=== PATIENT | male | born 1935 | race Caucasian/White ===

== ENCOUNTER → 2018-06-26 11:54 | Outpatient (CLI) | payer MEDICARE, SELFPAY ==
[2018-06-26 14:22] LABS: Absolute Lymphocyte Count 1.66 X10^3/ul (0.83-4.51); Absolute Neutrophil Count 4.5 X10^3/uL (2.0-7.7); Basophil# 0.03 X10^3/uL; Basophil% 0.4 % (0-1); Eosinophil# 0.27 X10^3/uL; Eosinophils% 3.7 % (0-5); Hematocrit 42.3 % (40-54); Hemoglobin 13.9 g/dl (13.0-16.5); Lymphocyte # 1.66 X10^3/ul (4.0); Lymphocyte % 22.6 % (19-41); Mean Corp Hgb Conc 32.9 g/gl (32-36); Mean Corpuscular Volume 91.2 fL (80-94); Mean Platelet Vol. 10.8 fl (6.2-12.0); Monocyte# 0.87 X10^3/uL; Monocyte% 11.9 % (0-10); Neutrophil # 4.49 X10^3/uL (2.7-7.7); Neutrophil % 61.1 % (47-70); Platelet Count 338 K/mm3 (150-450); RBC Distribution Width CV 13.1 % (11.6-14.6); RBC Distribution Width SD 43.2 fl (35.1-43.9); Red Blood Count 4.64 M/mm3 (4.6-6.2); White Blood Count 7.3 K/mm3 (4.4-11.0)
[2018-06-26 14:23] LABS: POSITIVE COUNT NO; POSITIVE DIFFERENTIAL NO; POSITIVE MORPHOLOGY NO
[2018-06-26 14:35] LABS: ALB/GLOB Ratio 0.7 RATIO (0.9-2.4); AST(SGOT) 22 U/L (15-37); Alanine Aminotransfer ALT/SGPT 17 U/L (16-61); Albumin, Serum 3.3 g/dL (3.2-5.0); Alkaline Phosphatase 60 U/L (45-117); Anion Gap 7 (5-15); BUN 17 mg/dL (7-18); BUN/Creat Ratio 16.8 RATIO (10-20); Calcium,Total 9.2 mg/dL (8.5-10.1); Chloride 99 mmol/L (98-107); Creatinine, Serum 1.01 mg/dL (0.70-1.30); EST Glomerular Filtration Rate 75 mL/min (>60); Est Glom Filt Rate - Afr Amer 91 mL/min (>60); Globulin 4.8 g/dL (2.2-4.2); Glucose 97 mg/dL (74-106); Potassium 4.4 mmol/L (3.5-5.1); Protein, Total 8.1 g/dL (6.4-8.2); Rheumatoid Factor < 10.0 IU/mL (<15); Sodium Level 135 mmol/L (136-145); Uric Acid 7.3 mg/dL (3.5-7.2)
[2018-06-27 15:22] LABS: ANTINUCLEAR ANTIBODIES DIRECT Positive (Negative)
== END ==
PROVIDERS: Family Provider Family Medicine; PCP Family Medicine; Visit Provider Family Medicine
DX: M10.9 Gout, unspecified (principal)
CPT/HCPCS: 36415; 80053; 84550; 85025; 86038; 86140; 86225; 86235; 86431

== ENCOUNTER → 2024-04-18 | Outpatient (CLI) | payer MEDICARE, SELFPAY ==
[2024-04-18 15:09] LABS: Absolute Lymphocyte Count 1.33 X10^3/uL (0.83-4.51); Absolute Neutrophil Count 8.2 X10^3/uL (2.0-7.7); Basophil# 0.05 X10^3/uL; Basophil% 0.4 % (0-1); Eosinophil# 0.24 X10^3/uL; Eosinophils% 2.1 % (0-5); Hemoglobin 13.2 g/dL (13.0-16.5); Lymphocyte # 1.33 X10^3/ul (0.83-4.51); Lymphocyte % 11.7 % (19-41); Mean Corp Hgb Conc 32.2 g/dL (32-36); Mean Corpuscular Hgb 29.2 pg (27.0-32.0); Mean Corpuscular Volume 90.7 fL (80-94); Mean Platelet Vol. 11.6 fl (6.2-12.0); Monocyte# 1.44 X10^3/uL; Monocyte% 12.7 % (0-10); NRBC Flagged by Analyzer 0 % (0-5); Neutrophil # 8.21 X10^3/uL (2.7-7.7); Neutrophil % 72.7 % (47-70); Platelet Count 280 K/mm3 (150-450); RBC Distribution Width CV 14.2 % (11.6-14.6); RBC Distribution Width SD 47.4 fl (35.1-43.9); Red Blood Count 4.52 M/mm3 (4.6-6.2); White Blood Count 11.3 K/mm3 (4.4-11.0)
[2024-04-18 15:33] LABS: ALB/GLOB Ratio 0.7 RATIO (0.9-2.4); AST(SGOT) 14 U/L (15-37); Alanine Aminotransfer ALT/SGPT 15 U/L (16-61); Albumin, Serum 3.5 g/dL (3.2-5.0); Alkaline Phosphatase 69 U/L (45-117); Anion Gap 8 (5-15); BUN 14 mg/dL (7-18); BUN/Creat Ratio 15.3 RATIO (10-20); Calcium,Total 9.6 mg/dL (8.5-10.1); Chloride 98 mmol/L (98-107); Creatinine, Serum 0.92 mg/dL (0.70-1.30); EST Glomerular Filtration Rate 83 mL/min (>60); Est Glom Filt Rate - Afr Amer 100 mL/min (>60); Globulin 4.7 g/dL (2.2-4.2); Glucose 105 mg/dL (74-106); Potassium 4.4 mmol/L (3.5-5.1); Protein, Total 8.2 g/dL (6.4-8.2); Rheumatoid Factor < 10.0 IU/mL (<15); Sodium Level 133 mmol/L (136-145); Uric Acid 6.8 mg/dL (3.5-7.2)
[2024-04-18 16:03] LABS: Erythrocyte Sedimentation Rate 63 mm/hr (0-20)
[2024-04-21 16:09] LABS: Lyme Scn Total Ab w/Rflx Negative (Negative); PROEL- A/G Ratio 0.8 (0.7-1.7); PROEL- Albumin 3.3 g/dL (2.9-4.4); PROEL- Alpha-1 Globulin 0.4 g/dL (0.0-0.4); PROEL- Alpha-2 Globulin 1.4 g/dL (0.4-1.0); PROEL- Beta Globulin 1.1 g/dL (0.7-1.3); PROEL- Gamma Globulin 1.3 g/dL (0.4-1.8); PROEL- Globulin, Total 4.2 g/dL (2.2-3.9); PROEL- TOTAL PROTEIN 7.5 g/dL (6.0-8.5); PROEL-M-Spike Not Observed g/dL (Not Observed)
== END | disposition home or self-care (01) ==
PROVIDERS: PCP Family Medicine; Visit Provider Family Medicine
DX: M06.4 Inflammatory polyarthropathy (principal)
CPT/HCPCS: 36415; 80053; 84165; 84550; 85025; 85652; 86140; 86431; 86618

== ENCOUNTER → 2024-05-05 | Outpatient (CLI) | payer MEDICARE, SELFPAY ==
[2024-05-05 17:58] LABS: Erythrocyte Sedimentation Rate 20 mm/hr (0-20)
[2024-05-05 18:06] LABS: CRP < 2.90 mg/L (0.0-3.0)
== END | disposition home or self-care (01) ==
LOC: MFPLAB 14:40
PROVIDERS: PCP Family Medicine; Visit Provider Family Medicine
DX: M35.3 Polymyalgia rheumatica (principal)
CPT/HCPCS: 36415; 85652; 86140

== ENCOUNTER → 2024-05-23 | Outpatient (CLI) | payer MEDICARE, SELFPAY ==
[2024-05-23 12:21] LABS: Erythrocyte Sedimentation Rate 11 mm/hr (0-20)
[2024-05-23 12:34] LABS: CRP < 2.90 mg/L (0.0-3.0)
== END | disposition home or self-care (01) ==
LOC: MFPLAB 09:22
PROVIDERS: PCP Family Medicine; Visit Provider Family Medicine
DX: M35.3 Polymyalgia rheumatica (principal)
CPT/HCPCS: 36415; 85652; 86140

== ENCOUNTER 2025-06-26 13:30 | Outpatient (RCR) | payer MEDICARE, SELFPAY ==
--- NOTE | 2025-06-02 14:35 | HP.PTEVAL_ITS ---
Patient's Visit Information Visit Information Visit Information: OSIEL LANCASTER is a 89 year old M referred to Physical Therapy by Dr. Stephan Sullivan MD with a diagnosis of LEFT FLANK /LOWER ABDOMINAL PAIN ,ILIOCOSTALIS SYNDROME. Date of Evaluation: 06/02/25 Physical Therapist: Reynaldo Leong PT, Cert MDT, OCS Visit Plan Frequency: 2x /Week Duration: 4 Weeks Plan: PT INTERVENTIONS HIP ROM ,STRENGTHENING HIP , FUNCTIONAL STRENGTHENING ,CORE STRENGTHENING AND MODALTIES Subjective Subjective: This 89 y/o male presents to physical therapy with left hip and groin region. Seen DR medina PT. Patient had CT-Scan. Patient noticed pain for 2 months which has worsen past several weeks. 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 Alleviating factors rest. Difficulty with steps and unable to squat.Patient able to sleeping , Coughing/sneezing +. Bowel/bladder - .Tried prednisone did not help. Seen DR r/o hernia causing pain. Sleeping good. Patient has no h/o trauma. Patient has had no treatment. Patient condition affects QOL/function. Patient goals to have kirk pain and why. SOCIAL: VOCATION: retired HOBBIES: gardening Pain Left Hip: Pain Intensity (Out of 10): 2 Pain Intensity Range: 8 Objective Objective: POSTURE: mild forward posture ,flat spine GAIT: mild forward posture reciprocal pattern PALAPTION: mild tender Left LS PROM HIP: flexion 0-120 degrees ,hip IR 10 degrees MMT: quads/hams 4/5 ,hip flexion ,hip abduction 4-/5 ,ankle 5/5 LUMBAR ROM: flexion mod loss ,extension severe loss ,side glides mod loss FLEXABILITY: hamstrings min tight Special Tests L/S Slump test left side: Negative L/S Slump test right side: Negative L/S Left Straight Leg Raise: Negative L/S Right Straight Leg Raise: Negative Lumbar Standing: Flexion - Mechanical Response: No effect Lumbar Standing: Flexion - Symptoms During Testing: No effect Lumbar Standing: Flexion - Symptoms After Testing: No effect Lumbar Standing: Extension - Mechanical Response: No effect Lumbar Standing: Extension - Symptoms During Testing: No effect Lumbar Standing: Extension - Symptoms After Testing: No effect Lumbar Standing: Right Side Glides - Mechanical Response: No effect Lumbar Standing: Right Side [place] - Symptoms During Testing: No effect Lumbar Standing: Right Side [place] - Symptoms After Testing: No effect Lumbar Standing: Left Side [place] - Mechanical Response: No effect Lumbar Standing: Left Side [place] - Symptoms During Testing: No effect Lumbar Standing: Left Side [place] - Symptoms After Testing: No effect L Hip Scour: Positive L Hip ENRRIQUE - Intraarticular Pathology: Positive L Hip Trendelenberg - Glut Medius: Negative Balance/Special Test Scores Lower Extremity Functional Score: 36 Goals Goal 1:: Patient to be I with HEP Goal Time Frame: 4-6 Weeks Goal 2:: Patient to improve LFES score by 5 points to improve QOL Goal Time Frame: 4-6 Weeks Goal 3:: Patient to decrease hip pain by 50% improvement with less pain and improved function Goal Time Frame: 4-6 Weeks Goal 4:: Patient to improve strength of left hip to good with improved function Goal Time Frame: 4-6 Weeks Goal 5:: Patient able to perform ADLS and housework walking /standing with min limitations Goal Time Frame: 4-6 Weeks Rehabilitation Potential Physical Therapy Diagnosis: This patient has left hip groin pain possible with pain with walking/standing ,bending ,+ scouring test thus benefit from skilled PT Rehabilitation Potential: Good Anticipated Interventions Patient/Client Instruction: Educate patient on: Condition and Plan of Care For the Purpose of:: To decrease pain, To increase ROM, To improve muscle performance and motor function, To improve ability to perform ADL's, To increase tolerance to activity/condition/position, To improve ability of physical actions for home/community/work/leisure, To improve gait and locomotor functions, To improve health of tissue, To decrease soft tissue restriction, To increase flexibility/ROM and To improve tolerance to ADL's Therapeutic Exercise to Include: Strength training, Flexibilty training and Dynamic Lumbar Stabilization Comment: HIP For the Purpose of:: To decrease pain, To increase ROM, To improve muscle perfo rmance and motor function, To improve ability to perform ADL's, To increase tolerance to activity/condition/position, To improve ability of physical actions for home/community/work/leisure, To improve health of tissue, To decrease soft tissue restriction, To increase flexibility/ROM, To prevent re-injury and To improve tolerance to ADL's TENS: Yes IF ES: Yes Cryotherapy (ice pack, ice massage): Yes Thermo therapy (hot pack): Yes Ultrasound (thermal/non thermal): Yes For the Purpose of:: To decrease pain, To increase ROM, To improve nutrient delivery to tissue, To increase oxygenation perfusion, To improve health of tissue and To decrease soft tissue restriction Text: Thank you for the opportunity to evaluate your patient. For Medicare and Medicare HMO plans, please review the plan of care and approve it. It will need to be FAXED BACK to us at [phone] for Medicare purposes. For Medicare only, by signing this I certify the plan of care. Please let me know if there are questions or concerns regarding this plan of care. Physician Signature: Date:
--- NOTE | 2025-06-26 13:41 | HP.PTEVAL_ITS ---
Patient's Visit Information Visit Information Visit Information: OSIEL LANCASTER is a 89 year old M referred to Physical Therapy by Dr. Stephan Sullivan MD with a diagnosis of LEFT FLANK /LOWER ABDOMINAL PAIN ,ILIOCOSTALIS SYNDROME. Date of Evaluation: 06/02/25 Physical Therapist: Reynaldo Leong PT, Cert MDT, OCS Visit Plan Frequency: 2x /Week Duration: 4 Weeks Plan: D/C TO HEP Subjective Subjective: This 89 y/o male presents to physical therapy with left hip and groin region. Seen DR carol DELACRUZ. Patient had CT-Scan. Patient noticed pain for 2 months which has worsen past several weeks. 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 Alleviating factors rest. Difficulty with steps and unable to squat.Patient able to sleeping , Coughing/sneezing +. Bowel/bladder - .Tried prednisone did not help. Seen r/o hernia causing pain. Sleeping good. Patient has no h/o trauma. Patient has had no treatment. Patient condition affects QOL/function. Patient goals to have kirk pain and why. SOCIAL: VOCATION: retired HOBBIES: gardening Pain Left Hip: Pain Intensity (Out of 10): 3 Pain Intensity Range: 8 Comment: in LB Objective Objective: POSTURE: mild forward posture ,flat spine GAIT: mild forward posture reciprocal pattern PALAPTION: mild tender Left LS PROM HIP: flexion 0-120 degrees ,hip IR 10 degrees MMT: quads/hams 4/5 ,hip flexion ,hip abduction 4-/5 ,ankle 5/5 LUMBAR ROM: flexion mod loss ,extension severe loss ,side glides mod loss FLEXABILITY: hamstrings min tight Special Tests L/S Slump test left side: Negative L/S Slump test right side: Negative L/S Left Straight Leg Raise: Negative L/S Right Straight Leg Raise: Negative Lumbar Standing: Flexion - Mechanical Response: No effect Lumbar Standing: Flexion - Symptoms During Testing: No effect Lumbar Standing: Flexion - Symptoms After Testing: No effect Lumbar Standing: Extension - Mechanical Response: No effect Lumbar Standing: Extension - Symptoms During Testing: No effect Lumbar Standing: Extension - Symptoms After Testing: No effect Lumbar Standing: Right Side Glides - Mechanical Response: No effect Lumbar Standing: Right Side [place] - Symptoms During Testing: No effect Lumbar Standing: Right Side [place] - Symptoms After Testing: No effect Lumbar Standing: Left Side [place] - Mechanical Response: No effect Lumbar Standing: Left Side [place] - Symptoms During Testing: No effect Lumbar Standing: Left Side [place] - Symptoms After Testing: No effect L Hip Scour: Positive L Hip ENRRIQUE - Intraarticular Pathology: Positive L Hip Trendelenberg - Glut Medius: Negative Balance/Special Test Scores Lower Extremity Functional Score: 40 Goals Goal 1:: Patient to be I with HEP Goal Time Frame: 4-6 Weeks Goal 2:: Patient to improve LFES score by 5 points to improve QOL Goal Time Frame: 4-6 Weeks Goal 3:: Patient to decrease hip pain by 50% improvement with less pain and improved function Goal Time Frame: 4-6 Weeks Goal 4:: Patient to improve strength of left hip to good with improved function Goal Time Frame: 4-6 Weeks Goal 5:: Patient able to perform ADLS and housework walking /standing with min limitations Goal Time Frame: 4-6 Weeks Rehabilitation Potential Physical Therapy Diagnosis: This patient has left hip groin pain possible with pain with walking/standing ,bending ,+ scouring test thus benefit from skilled PT Rehabilitation Potential: Good Anticipated Interventions Patient/Client Instruction: Educate patient on: Condition and Plan of Care For the Purpose of:: To decrease pain, To increase ROM, To improve muscle performance and motor function, To improve ability to perform ADL's, To increase tolerance to activity/condition/position, To improve ability of physical actions for home/community/work/leisure, To improve gait and locomotor functions, To improve health of tissue, To decrease soft tissue restriction, To increase flexibility/ROM and To improve tolerance to ADL's Therapeutic Exercise to Include: Strength training, Flexibilty training and Dynamic Lumbar Stabilization Comment: HIP For the Purpose of:: To decrease pain, To increase ROM, To improve muscle performance and motor function, To improve ability to perform ADL's, To increase tolerance to activity/condition/position, To improve ability of physical actions for home/community/work/leisure, To improve health of tissue, To decrease soft t issue restriction, To increase flexibility/ROM, To prevent re-injury and To improve tolerance to ADL's TENS: Yes IF ES: Yes Cryotherapy (ice pack, ice massage): Yes Thermo therapy (hot pack): Yes Ultrasound (thermal/non thermal): Yes For the Purpose of:: To decrease pain, To increase ROM, To improve nutrient delivery to tissue, To increase oxygenation perfusion, To improve health of tissue and To decrease soft tissue restriction Text: Thank you for the opportunity to evaluate your patient. For Medicare and Medicare HMO plans, please review the plan of care and approve it. It will need to be FAXED BACK to us at [phone] for Medicare purposes. For Medicare only, by signing this I certify the plan of care. Please let me know if there are questions or concerns regarding this plan of care. Physician Signature: Date:
--- NOTE | 2025-06-26 13:57 | HP.PTDCSUM ---
Discharge Summary D/C summary: It has been my pleasure to treat OSIEL LANCASTER referred by Dr. Stephan Sullivan MD, with the diagnosis of LEFT FLANK /LOWER ABDOMINAL PAIN ,ILIOCOSTALIS SYNDROME for a total of 8 visit(s). Discharge Date: 06/26/25 Please see the following information for a summary of their discharge status. Subjective Subjective: Doing okay Not sure if PT helped Pain Left Hip: Pain Intensity (Out of 10): 3 Overall Improvement % Improvement: 30 Objective Objective/Function: POSTURE: mild forward posture ,flat spine GAIT: mild forward posture reciprocal pattern PALAPTION: mild tender Left LS PROM HIP: flexion 0-120 degrees ,hip IR 10 degrees MMT: quads/hams 4/5 ,hip flexion ,hip abduction 4-/5 ,ankle 5/5 LUMBAR ROM: flexion mod loss ,extension severe loss ,side glides mod loss FLEXABILITY: hamstrings min tight Goals Goal 1:: Patient to be I with HEP Goal Progress: Goal Met Goal 2:: Patient to improve LFES score by 5 points to improve QOL Goal Progress: Progressing Goal 3:: Patient to decrease hip pain by 50% improvement with less pain and improved function Goal Progress: Progressing Goal 4:: Patient to improve strength of left hip to good with improved function Goal Progress: Progressing Goal 5:: Patient able to perform ADLS and housework walking /standing with min limitations Goal Progress: Progressing Plan Plan: D/C TO HEP D/C Information Discharge Comments: HEP d/c sentence: If there are questions or concerns regarding this patient's physical therapy, please feel free to call me at [phone]. Thank you for the referral of this patient. Sincerely, Reynaldo Leong, PT, Cert MDT, OCS Balance/Gait/Functional tests Balance/Special Test Scores Lower Extremity Functional Score: 40 Improvement % Improvement: 30
== END 2025-06-26 19:00 | disposition home or self-care (01) ==
LOC: PT 13:30
PROVIDERS: PCP Family Medicine; Referring Provider Family Medicine; Visit Provider Family Medicine
DX: M25.80 Other specified joint disorders, unspecified joint (principal)
CPT/HCPCS: 97110; 97162; 97530

== ENCOUNTER 2025-08-06 09:44 | Day surgery (SDC) | payer MEDICARE, SELFPAY ==
--- NOTE | 2025-07-31 08:55 | EKG12_ITS ---
Test Reason : PREOP
--- NOTE | 2025-07-31 17:32 | PAT.ANESEVAL ---
Pre-Assessment Diagnosis/Proposed Procedure Planned Operative Procedure(s): (L) Lap Robotic Inguinal Hernia w/mesh Anesthesia History Anesthesia History - senior relationship manager: Anesthesia History - senior relationship manager Hx Hospitalization No 07/30/25 13:22 Any Problems With Anesthesia No 07/30/25 13:22 Cholinesterase deficiency No 07/30/25 13:22 You/Your Family Experience No 07/30/25 13:22 fever (hyperthermia) with Relationship Recent Exposure to Contagious Disease Does patient have nerve No 07/30/25 13:22 stimulator Patient instructed to have device shut off --Does patient have Pacemaker or ICD? When Was Last Pacemaker Check QUESTION #4 FULL TEXT: You/Your Family Experience fever (hyperthermia) with Anesthesia Last Oral Intake Last Oral intake: Last Oral Intake NPO since Meds taken in AM with sips of water? Meds patient instructed to take am of surgery PONV PONV - senior relationship manager: PONV - senior relationship manager Female No 07/30/25 13:22 HX of Motion Sickness No 07/30/25 13:22 HX of N/V After Surgery No 07/30/25 13:22 Non-Smoker Yes 07/30/25 13:22 Duration of Surgery greater Yes 07/30/25 13:22 than 60 minutes Number of Risk Factors 2 07/30/25 13:22 PONV Score Moderate Risk 07/30/25 13:22 Height & Weight Height & Weight: Anesthesia: Height & Weight Height 5 ft 3 in 07/27/25 13:53 Respiratory Assessment Respiratory Assessment - senior relationship manager: Respiratory Tract Infection Hx - senior relationship manager Hx Respiratory Tract Infection No 07/30/25 13:22 STOP Sleep Apnea STOP Sleep Apnea - senior relationship manager: STOP Sleep Apnea - senior relationship manager Hx Hypertension No 07/30/25 13:22 Hx Sleep Apnea No 07/30/25 13:22 CPAP BIPAP Do you snore loudly (louder No 07/30/25 13:22 than talking or can be heard Do you often feel tired/ No 07/30/25 13:22 fatigued/ sleepy during daytime? Has anyone observed you stop No 07/30/25 13:22 breathing during sleep? STOP Results Negative 07/30/25 13:22 QUESTION #5 FULL TEXT : Do you snore loudly (louder than talking or can be heard through closed doors)? 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 Specify any problems Hx of Preganancy in last 3 No 07/30/25 13:22 Months Nurse Filling Out Transfusion VLEHMAN 07/30/25 13:22 & Questions: Date: 07/30/25 07/30/25 13:22 Time: 13:33 07/30/25 13:22 Patient unable to answer at this time (ie. confused, unrespo /Reproduction History /Reproductive History - senior relationship manager: /Reproductive Hx- senior relationship manager Hx Now Gestational Age (in weeks): EDC: Hx Hx Para Hx Section SAB PFS Medical History (Updated 07/30/25 @ 13:32 by Edel Farley) Wears partial dentures Wears hearing aid Wears glasses Cancer Depression Arthritis Prostate disease High cholesterol History of ulceration Heartburn Gastric reflux Non-smoker History of edema Leg cramps History of stress test Enlarged prostate Left groin pain Duodenal ulcer Home Medications ?Medication ?Instructions ?Recorded ?Last Taken ?Type cholecalciferol (vitamin D3) 25 25 mcg PO QDAY 04/08/25 Unknown History mcg (1,000 unit) capsule digestive enzymes 1 cap PO QDAY 04/08/25 Unknown History [id number] 300 mcg-K 60 1 tab PO Q24H 04/08/25 Unknown History mcg-lycop 600 mcg-lutein 300 mcg tablet (Centrum Silver Men) saw palmetto 500 mg capsule 500 mg PO BID 04/08/25 Unknown History turmeric 400 mg capsule 400 mg PO DAILY 04/08/25 Unknown History calcium carbonate 500 mg PO QDAY 07/27/25 Unknown History Allergy/AdvReac Type Severity Reaction Status Date / Time colchicine Allergy Mild Diarrhea Verified 07/30/25 13:20 Family History (Updated 04/08/25 @ 13:01 by Kusum Lr) Father CVA (cerebral vascular accident) Brother CAD (coronary artery disease) CVA (cerebral vascular accident) Daughter Thyroid disorder Son Myocardial infarction Surgical History (Updated 07/30/25 @ 13:22 by Edel Farley) History of colonoscopy History of tooth extraction S/P inguinal hernia repair Social History (Updated 04/08/25 @ 13:01 by Kusum Lr) Smoking Status: Never smoker alcohol intake: never Audit: Pertinent Findings Pertinent Findings EKG Perinent findings: July 31, 2025. Normal sinus rhythm. Right bundle branch block. Compared to EKG of May 2006, RBBB is now present. Recommendation Anesthesia Recommendation Anesthesia recommendation: OPTIMIZED for anesthesia
[2025-08-06] VITALS (10 sets, daily range): BP systolic 121–164; BP diastolic 69–92; PULSE 69–95; RESP 12–16; TEMP 36.1–36.9; O2SAT 93–100; BMI 20.5
[2025-08-06] MEDS: Lactated Ringers 1,000 ML 15 ML IV ×2 (10:13→13:00)
--- NOTE | 2025-08-06 10:44 | PCM.PRE.AN2 ---
ASA Classification* ASA Classification ASA Classification: 2 Assessment & Plan Anesthesia* Anesthesia Assessment Anesthesia Assessment: Discussed sedation and/or anesthesia options, risks, benefits, and alternatives with patient/parents/legal guardian/POA. Questions invited. The patient/parents/legal guardian/POA seems to understand and agrees to proceed with anesthesia plan. Reviewed the physical assessment, medical history, allergy history and patient home medications list prior to surgery/procedure/anesthetic and documented any changes. Performed airway and anesthesia risk assessments. Anesthesia Type Anesthesia Type: MAC History Source History Obtained from:: Patient and Chart Anesthesia Focused Assessment* Temperature: 98.4 F Pulse Rate: 95 Blood Pressure: 164/92 Respiratory Rate: 16 Pulse Ox: 100 Oxygen Delivery Method: Room Air Airway Assessment Mouth opens: >3 cm Mallampati Score: II Teeth Condition: Partial (Upper and lower partials are out.) Neck Range of motion (ROM): Limited ROM (Slight Decrease) Labs Anesthesia Preop lab: CBC WBC, (4.4-11.0) 11.3 K/mm3 H 04/18/24, 12:18 RBC, (4.6-6.2) 4.52 M/mm3 L 04/18/24, 12:18 Hgb, (13.0-16.5) 13.2 g/dL 04/18/24, 12:18 Hct, (40-54) 41.0 % 04/18/24, 12:18 Plt Count, (150-450) 280 K/mm3 04/18/24, 12:18 CHEMISTRY Potassium, (3.5-5.1) 4.4 mmol/L 04/18/24, 12:18 Sodium, (136-145) 133 mmol/L L 04/18/24, 12:18 BUN, (7-18) 14 mg/dL 04/18/24, 12:18 Creatinine, (0.70-1.30) 0.92 mg/dL 04/18/24, 12:18 Glucose, (74-106) 105 mg/dL 04/18/24, 12:18 TSH, (0.358-3.74) 3.45 uIU/mL 11/03/15, 10:18 COAG PT, (11.9-14.4) 13.2 SECONDS 05/28/13, 23:10 Pre-Assessment Diagnosis/Proposed Procedure Planned Operative Procedure(s): (L) Lap Robotic Inguinal Hernia w/mesh Anesthesia History Anesthesia History - informatics analyst: Anesthesia History - informatics analyst Hx Hospitalization No 07/30/25 13:22 Any Problems With Anesthesia No 07/30/25 13:22 Cholinesterase deficiency No 07/30/25 13:22 You/Your Family Experience No 07/30/25 13:22 fever (hyperthermia) with Relationship Recent Exposure to Contagious No 08/06/25 10:08 Disease Does patient have nerve No 07/30/25 13:22 stimulator Patient instructed to have device shut off --Does patient have Pacemaker No 08/06/25 10:08 or ICD? When Was Last Pacemaker Check QUESTION #4 FULL TEXT: You/Your Family Experience fever (hyperthermia) with Anesthesia Last Oral Intake Last Oral intake: Last Oral Intake NPO since 05:30 08/06/25 10:08 Meds taken in AM with sips of No 08/06/25 10:08 water? Meds patient instructed to take am of surgery Any additional information?: Yes NPO since: 05:30 Meds taken in AM with sips of water?: No PONV PONV - informatics analyst: PONV - informatics analyst Female No 07/30/25 13:22 HX of Motion Sickness No 07/30/25 13:22 HX of N/V After Surgery No 07/30/25 13:22 Non-Smoker Yes 07/30/25 13:22 Duration of Surgery greater Yes 07/30/25 13:22 than 60 minutes Number of Risk Factors 2 07/30/25 13:22 PONV Score Moderate Risk 07/30/25 13:22 Height & Weight Height & Weight: Anesthesia: Height & Weight Height 5 ft 5 in 08/06/25 10:08 Weight: 56 kg 08/06/25 10:08 Body Mass Index (BMI) 20.5 08/06/25 10:08 Respiratory Assessment Respiratory Assessment - informatics analyst: Respiratory Tract Infection Hx - informatics analyst Hx Respiratory Tract Infection No 07/30/25 13:22 STOP Sleep Apnea STOP Sleep Apnea - informatics analyst: STOP Sleep Apnea - informatics analyst Hx Hypertension No 07/30/25 13:22 Hx Sleep Apnea No 07/30/25 13:22 CPAP BIPAP Do you snore loudly (louder No 07/30/25 13:22 than talking or can be heard Do you often feel tired/ No 07/30/25 13:22 fatigued/ sleepy during daytime? Has anyone observed you stop No 07/30/25 13:22 breathing during sleep? STOP Results Negative 07/30/25 13:22 QUESTION #5 FULL TEXT : Do you snore loudly (louder than talking or can be heard through closed doors)? 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 Specify any problems Hx of Preganancy in last 3 No 07/30/25 13:22 Months Nurse Filling Out Transfusion [facility] 07/30/25 13:22 & Questions: Date: 07/30/25 07/30/25 13:22 Time: 13:33 07/30/25 13:22 Patient unable to answer at this time (ie. confused, unrespo /Reproduction History /Reproductive History - informatics analyst: /Reproductive Hx- informatics analyst Hx Now Gestational Age (in weeks): EDC: Hx Hx Para Hx Section SAB Active Medications Active Medications: Current Medications Generic Name Dose Route Start Last Admin Trade Name Freq PRN Reason Stop Dose Admin Cefazolin Sodium 2 gm/ Sodium 110 mls @ 200 mls/hr 08/06/25 11:30 Chloride IV 08/06/25 12:02 INTRAOP ONE Lactated Ringer's 1,000 mls @ 15 mls/hr 08/06/25 10:00 08/06/25 10:13 IV 15 mls/hr .Q48H BRENDA Administration PFSH Medical History Wears partial dentures Wears hearing aid Wears glasses Cancer Depression Arthritis Prostate disease High cholesterol History of ulceration Heartburn Gastric reflux Non-smoker History of edema Leg cramps History of stress test Enlarged prostate Left groin pain Duodenal ulcer Home Medications ?Medication ?Instructions ?Recorded ?Last Taken ?Type cholecalciferol (vitamin D3) 25 25 mcg PO QDAY 04/08/25 08/05/25 History mcg (1,000 unit) capsule digestive enzymes 1 cap PO QDAY 04/08/25 08/05/25 History yimhynbh-[id number] 300 mcg-K 60 1 tab PO Q24H 04/08/25 08/05/25 History mcg-lycop 600 mcg-lutein 300 mcg tablet (Centrum Silver Men) saw palmetto 500 mg capsule 500 mg PO BID 04/08/25 08/05/25 History turmeric 400 mg capsule 400 mg PO DAILY 04/08/25 08/05/25 History calcium carbonate 500 mg PO QDAY 07/27/25 08/05/25 History Allergy/AdvReac Type Severity Reaction Status Date / Time colchicine Allergy Mild Diarrhea Verified 08/06/25 10:06 Family History Father CVA (cerebral vascular accident) Brother CAD (coronary artery disease) CVA (cerebral vascular accident) Daughter Thyroid disorder Son Myocardial infarction Surgical History History of colonoscopy History of tooth extraction S/P inguinal hernia repair Social History Smoking Status: Never smoker alcohol intake: never Review of Systems (Anesthesia) ROS Narrative System reviewed and no additional complaints, except as documented.
--- NOTE | 2025-08-06 11:32 | PCM.HP.STD ---
HPI - General General Date of Admission: 08/06/25 Date of Service: 08/06/25 Chief Complaint: Left inguinal hernia HPI Narrative OSIEL LANCASTER, is a 89 M who presents for robotic left inguinal hernia repair with mesh. Patient was seen through the office with left inguinal hernia. I offered him robotic repair. We discussed the details of the planned procedure and he wishes to proceed [facility] Medical History Wears partial dentures Wears hearing aid Wears glasses Cancer Depression Arthritis Prostate disease High cholesterol History of ulceration Heartburn Gastric reflux Non-smoker History of edema Leg cramps History of stress test Enlarged prostate Left groin pain Duodenal ulcer Home Medications ?Medication ?Instructions ?Recorded ?Last Taken ?Type cholecalciferol (vitamin D3) 25 25 mcg PO QDAY 04/08/25 08/05/25 History mcg (1,000 unit) capsule digestive enzymes 1 cap PO QDAY 04/08/25 08/05/25 History qnnuhblj-fo-jdilc 300 mcg-K 60 1 tab PO Q24H 04/08/25 08/05/25 History mcg-lycop 600 mcg-lutein 300 mcg tablet (Centrum Silver Men) saw palmetto 500 mg capsule 500 mg PO BID 04/08/25 08/05/25 History turmeric 400 mg capsule 400 mg PO DAILY 04/08/25 08/05/25 History calcium carbonate 500 mg PO QDAY 07/27/25 08/05/25 History Allergy/AdvReac Type Severity Reaction Status Date / Time colchicine Allergy Mild Diarrhea Verified 08/06/25 10:06 Family History Father CVA (cerebral vascular accident) Brother CAD (coronary artery disease) CVA (cerebral vascular accident) Daughter Thyroid disorder Son Myocardial infarction Surgical History History of colonoscopy History of tooth extraction S/P inguinal hernia repair Social History Smoking Status: Never smoker alcohol intake: never Vital Signs Vital Signs Vital Signs: 08/06/25 10:08 08/06/25 10:08 08/06/25 10:51 Temperature 98.4 F 98.4 F Temperature Source Temporal Pulse Rate 95 95 Respiratory Rate 16 16 Respiratory Pattern Normal Blood Pressure 164/92 H 164/92 H Blood Pressure Mean 116 Blood Pressure Source Monitor Blood Pressure Position Semi-Fowlers Blood Pressure Location Left Arm Pulse Ox 100 100 Oxygen Delivery Method Room Air Room Air Weight Weight: 123 lb 7.342 oz Body Mass Index (BMI) 20.5 Physical Exam Const alert, oriented x3 and no apparent distress Assessment & Plan Assessment/Plan (1) Left inguinal hernia: PLAN: Plan The patient is a 9-year-old male with a left inguinal hernia. I have offered him a robotic left inguinal hernia repair with mesh. We discussed the details of the planned procedure and he wishes to proceed. This will begin momentarily
[2025-08-06] MEDS: Lactated Ringers 1,000 ML 1000 ML IV (11:37)
[2025-08-06] MEDS: fentaNYL 100 MCG/2 ML Ampul IV (11:43)
[2025-08-06] MEDS: Lidocaine 1% (5 ml sdv) 5 ML Vial IV (11:43)
[2025-08-06] MEDS: Cefazolin 1 GM/5 ML Vial 2 GM IV (11:43)
--- NOTE | 2025-08-06 12:55 | DCINST_ITS ---
Discharge Instructions
--- NOTE | 2025-08-06 12:55 | EX.PCM.DISCH ---
Discharge Instructions Diet Discharge Diet: Light diet - advance as tolerated Activity Discharge Activity: Return to Normal Activity and May Shower May shower in (days): 1 Ice area for (Minutes): 30 Lifting Restrictions: No lifting pushing or pulling more than 20 pounds for 6 weeks Dressing / Incision Call your doctor if your incision/area has: Continuous Slow Oozing, Sudden Increased Bleeding, Increased Pain/ Swelling, Increased Redness, Foul Smelling Discharge and Swelling at the incision site Call your doctor if you observe: Fever of 101 or Higher Cleanse incision/area with: Soap & Water Follow Up Care Please Follow Up With: Alonso Flores MD When: 2 weeks. Please call office to schedule appointment Test Results: Test results from this visit will be discussed in further detail at your follow-up appointment, if applicable. Discharge Plan Admission Primary Reason for Your Visit: Robotic left inguinal hernia repair with mesh Attending Provider: Alonso Flores Primary Care Provider: Stephan Sullivan Instructions Print Language: Iranian Discharge Orders/Prescriptions Prescriptions: New oxycodone 5 mg tablet 5 mg PO Q8H PRN (Reason: pain) 3 Days Qty: 10 0RF Continued cholecalciferol (vitamin D3) 25 mcg (1,000 unit) capsule 25 mcg PO QDAY Centrum Silver Men [id number] mcg tablet 1 tab PO Q24H saw palmetto 500 mg capsule 500 mg PO BID turmeric 400 mg capsule 400 mg PO DAILY digestive enzymes Capsule 1 cap PO QDAY Rx Instructions: administer with food; swallow whole; do not crush/chew/dissolve/break/cut calcium carbonate 500 mg calcium (1,250 mg) tablet,chewable 500 mg PO QDAY Other Ambulatory Orders: 12 Lead EKG (Routine) Timeframe: [id number] Location: None Selected Ordered By: Dr. Lincoln Holloway Referrals / Follow Up: Stephan Sullivan MD [Primary Care Provider, Family Practice] Disposition Disposition (needs filled in before D/C Order can be placed): Home, Self Care
--- NOTE | 2025-08-06 12:58 | PCM.OPRPT ---
Procedures Digestive [id number]-49xxx: [id number] Laparo cholecystectomy/graph Operative Report (Standard) Operative Information Date of Procedure: 08/06/25 Pre-Operative Diagnosis: Left inguinal hernia Post-Operative Diagnosis: Same Surgery/Procedure Performed: Robotic left inguinal hernia pair with mesh veterinarian poultry: Yes Division Commander: Leticia Olmos Tasks completed by first crusher: Closing, Trocar and Other Additional clinical research assistant?: No Type of Anesthesia: General and Local RN Documented Start/Stop Times: Operation Date: 08/06/25 11:30 Case Time Into Pre-Op 08/06/25 09:53 Out of Pre-Op 08/06/25 11:31 Anesthesia Start 08/06/25 11:37 Into Room 08/06/25 11:37 Procedure Start 08/06/25 11:56 Procedure Start Time: 11:56 Procedure Stop Time: 12:59 Select all DRAINS/GRAFTS/IMPLANTS that apply: Implanted device Implanted device details: ProGrip 10 x 15 cm mesh Special Medications: 2 g Ancef Estimated Blood Loss: 5 mL Specimen collected: No Description of surgery: The patient is an 89-year-old male recently seen to the office with a left inguinal hernia this was causing him increasing discomfort and was enlarging in size. I offered him a robotic left inguinal hernia repair with mesh. He had had a previous open right inguinal hernia repair years ago. We discussed the details of the planned procedure including risks benefits and alternatives and he wished to proceed. Patient was brought to the operating room today following informed consent. Preoperative antibiotics were given and a timeout was performed. Patient was placed supine on the operative table with arms outstretched and arm boards. A general anesthesia was induced. Once adequately sedated, the abdomen was then prepped and draped in usual sterile manner. An 8 mm incision was made just above the umbilicus. A 5 mm trocar was then placed optically. This was placed without incident. The abdomen was then fully insufflated with CO2 gas. A 5 mm 0 degree scope was inserted. There were no signs of bowel or vascular injury. Next 2 additional trocars were placed. These were both 8 mm trocars. 1 was placed on the right side of the abdomen and 1 was placed on the left side of the abdomen all in the same line as the umbilicus. The original umbilical trocar was switched to an 8 mm robotic trocar as well. Patient was then placed in mild Trendelenburg positioning. Left inguinal hernia was clearly visible. There is no evidence of right inguinal hernia. This previous mesh plug was visible. The peritoneum overlying the left inguinal hernia was then incised in a medial to lateral direction. A subperitoneal plane was then developed. Rajeev's ligament was dissected out medially. The indirect hernia sac was then dissected free from the cord structures and eventually reduced. Once sufficient dissection was performed to accommodate the mesh, a 10 x 15 piece of ProGrip mesh was trimmed to fit the operative field. This was placed in antibiotic solution. It was then inserted into the abdomen. The mesh was unrolled and laid into position. It covered over the fascial defect nicely. The peritoneum was then closed using a running 6 inch V-Loc suture. This closed the peritoneum nicely. No holes were noted in the peritoneum. All counts were correct. The remaining trocars were then removed. Local anesthetic was injected each of the incisions. The incisions were closed with 4-0 Vicryl. Skin glue was then applied. He was awakened from anesthesia and taken to recovery in good condition. Surgical Findings: Left inguinal hernia Complications Complications: No Admit VTE Documentation VTE Present on Admission: No VTE Mechan Device Prophylaxis: SCD's VTE Pharm Prophylaxis ordered?: No Reason prophylaxis not ordered: Treatment Not Indicated
[2025-08-06] MEDS: Bupiv/Epi 0.25% 30 ML Vial (13:04)
--- NOTE | 2025-08-06 13:09 | POSTOP.ANE_ITS ---
Anesthesia: Postop Eval I
--- NOTE | 2025-08-06 13:09 | PCM.POST.ANE ---
Anesthesia: Postop Eval I Current Vital Signs Temperature: 97 F Pulse Rate: 74 Blood Pressure: 139/75 Respiratory Rate: 16 Pulse Ox: 100 Oxygen Delivery Method: Nasal Cannula Oxygen Flow Rate (L/min): 3 Assessment Airway patent: Yes Spontaneous unlabored respirations: Yes Mental status: Awake nausea: No Vomiting: No Anesthesia Complication: No Fluid Hydration Crystalloid volume administer (ml): 1,000 Total IV fluid infused: 1,000 Progress Note Anesthesia document: Postop Eval 1 completed: Yes
--- NOTE | 2025-08-06 16:14 | POSTOPAN2_ITS ---
Anesthesia Postop Eval I Sum
--- NOTE | 2025-08-06 16:14 | PCM.POSTANE2 ---
Anesthesia Postop Eval I Sum Postop Eval Completion status Anesthesia document: Postop Eval 1 completed: Yes Anesthesia Postop Eval I Summary Anesthesia Postop Eval I Summary: Anesthesia Postop Eval I: Assessment Summary Airway patent Yes 08/06/25 13:10 [email or web address] Spontaneous unlabored Yes 08/06/25 13:10 [email or web address] [email or web address] respirations Mental status Awake 08/06/25 13:10 [email or web address] nausea No 08/06/25 13:10 [email or web address] [email or web address] Vomiting No 08/06/25 13:10 [email or web address] [email or web address] Anesthesia Postop Eval I: Fluid Summary Crystalloid volume administer 1,000 08/06/25 13:10 [email or web address] [email or web address] (ml) Colloids volume administered ( ml) Blood Product volume administered (ml) Total IV fluid infused 1,000 08/06/25 13:10 [email or web address] [email or web address] Anesthesia Postop Eval I: Summary Notes Anesthesia Complication No 08/06/25 13:10 [email or web address] Anesthesia Complication Comment: Post-operative progress note Anesthesia: Postop Eval II Evaluation Mental status: Awake and Calm Pain Level: 0 nausea: No Vomiting: No Complications Anesthesia Complication: No
== END 2025-08-06 15:45 | disposition home or self-care (01) ==
LOC: SDC 09:45 → AC 09:45
PROVIDERS: PCP Family Medicine; Referring Provider Surgery; Visit Provider Surgery
PROC: 0YQ64ZZ Repair Left Inguinal Region, Percutaneous Endoscopic Approach (ICD-10-PCS; CPT 49505; principal; 2025-08-06 11:10)
DX: K40.90 Unilateral inguinal hernia, without obstruction or gangrene, not specified as recurrent (principal); E78.00 Pure hypercholesterolemia, unspecified; K21.9 Gastro-esophageal reflux disease without esophagitis
CPT/HCPCS: 49505; S2900; 00830; 93005; C1781; J2405